=== PATIENT | male | born 1955 | race Caucasian/White ===

== ENCOUNTER 2024-06-04 20:48 | Observation (INO) | payer MEDICARE, SELFPAY ==
[2024-06-04] VITALS (8 sets, daily range): BP systolic 126–171; BP diastolic 80–100
--- NOTE | 2024-06-04 15:50 | ED.GENMED ---
ED Provider Triage
<Isis Lang PA-C - Last Filed: 06/04/24 15:57>
-
Patient seen by provider in Triage?: Seen in Triage
Attestation: A medical screening examination has been initiated by a qualified medical provider. Based on the assessment performed at this time, it has been determined that an emergent medical condition may exist and the patient has been informed
that further medical evaluation and possible additional diagnostic testing may be needed.
HPI: 69yoM here with double vision and dizziness x 1 hour. Also c/o nausea. Visual symptoms only present when looking to the left. Denies vertiginous symptoms. Describes dizziness as lightheadedness.
GENERAL: Alert , in no apparent distress
EYE: No visual abnormalities.
NECK: Trachea midline
ENT: No visible abnormalities.
LUNGS: No acute respiratory distress
NEUROLOGICAL: Alert and oriented
SKIN: Skin intact. No visible changes.
MUSCULOSKELETAL: Moving extremities normally
PSYCH: Normal and appropriate interaction.
This is a medical evaluation conducted in person to initiate diagnostic evaluation and provide initial therapeutics. Please see further documentation by the treating clinician.
Cardiac labs, EKG, and CT head ordered.
History of Present Illness
<Isis Lang PA-C - Last Filed: 06/04/24 15:57>
General
Chief Complaint: Dizziness
Time Seen by Provider: 06/04/24 16:40
<Sharee Carrasquillo MD, Resident - Last Filed: 06/04/24 21:27>
History of Present Illness
History of Present Illness:
69-year-old male with pmhx of Esqueda's palsy and amaurosis fugax presenting to the ED with nausea, left sided double vision and dizziness. Patient notes symptoms started around 1415 today and lasted about one hour. Denies slurred speech, weakness,
tingling, sensory loss, headache, LOC, trauma to head. Patient has a remote history of left sided amaurosis fugax in 2013 with unremarkable workup. 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
patient is currently asymptomatic.
Past History
<Isis Lnag PA-C - Last Filed: 06/04/24 15:57>
Past History
ED Past Medical History: Other (Esqueda's palsy) and Other (hepatitis c )
ED Past Surgical History: None
Social History
Tobacco: Non-smoker
Alcohol: None
Drug: None
Personal:
Living: with family
Employment: Employed
Review of Systems
<Sharee Carrasquillo MD, Resident - Last Filed: 06/04/24 21:27>
Review of Systems
Constitutional: Reports no symptoms
EENT: Reports no symptoms
Respiratory: Reports no symptoms
Cardiac: Reports no symptoms
ABD/GI: Reports nausea
: Reports no symptoms
Musculoskeletal: Reports no symptoms
Skin: Reports no symptoms
Neurological: Reports dizzy and other (double vision)
Hematologic/Lymphatic: Reports no symptoms
Psychiatric: Reports no symptoms
Phy Exam
<Sharee Carrasquillo MD, Resident - Last Filed: 06/04/24 21:27>
Physical Exam
Physical Exam:
GENERAL: Alert, awake, oriented. in no apparent distress
EYE: pupils equal and reactive. Extraocular muscles intact. Finger to nose negative. No visual field defects/diplopia. Mild right ptosis.
NECK: Supple, no significant adenopathy. No carotid bruit.
ENT: o/p clr, mmm. Mild nasolabial fold droop.
CARDIAC: Regular rate and rhythm.
LUNGS: Clear breath sounds bilaterally, no acute respiratory distress, no wheezes/rales/rhonchi
ABDOMEN: Soft, without focal tenderness, no r/g, no cvat
NEUROLOGICAL: Alert and oriented, no focal neuro deficits. Heel to lewis negative.
SKIN: Warm and dry, skin intact.
MUSCULOSKELETAL: No edema, well perfused. Bilateral upper and lower extremity strength: 5/5.
PSYCH: Normal and appropriate interaction.
Course
<Isis Lang PA-C - Last Filed: 06/04/24 15:57>
Orders/Labs/Results
Orders:
Orders
06/04/24 15:56
Electrocardiogram (*1) Urgent
Reason for Study: Vertigo / Dizzy
EKG- Treatment ONCE
06/04/24 16:01
CT Head W/o Iv Contrast Urgent
Comment:
Reason For Exam: dizziness, diplopia
06/04/24 16:06
Complete Blood Count/With Diff Urgent
Comprehensive Metabolic Panel Urgent
Troponin I Urgent
06/04/24 20:30
Admit/Transfer Patient As Directed
Co-Sign Provider:
Level of Care: Observation services
Assign to:: Telemetry
Physician / Group: Gabe
Diagnosis: visual disturbance
Reason for Telemetry: CVA/TIA
Date to Stop Telemetry: 06/07/24
Time to Stop Telemetry: 11:00
Code Status As Directed
Resuscitation Status: Full Code
PRN Pain Medication Management As Directed
May give lesser potent ordered pain med per pt: Yes
preference::
Protocol:: Medication orders for pain may be administered in a
manner that supports deferring to patient preference
when the pt is:
- Requesting an ordered lesser potent pain medication.
Least to most potent pain medications are defined
as: acetaminophen < NSAID < tramadol < opioids
(morphine, oxycodone, hydromorphone).
- Requesting a lesser dose of the same medication IF
ORDERED.
- Requesting a less intrusive route of administration
if both routes are prescribed by the provider (PO <
IV).
06/07/24 11:00
DC Protocol for Telemetry ONCE
Abnormal Lab Results
06/04/24
16:06
Glucose 127 H mg/dl
(70-99)
Albumin 5.1 H g/dl
(3.5-5.0)
06/04/24 16:06
06/04/24 16:06
Vital Signs
Initial and Last Documented VS:
Initial Vital Signs
Temp Pulse Resp BP Pulse Ox
98.1 F 65 20 171/100 99
06/04/24 15:49 06/04/24 15:49 06/04/24 15:49 06/04/24 15:49 06/04/24 15:49
Last Documented Vital Signs
Temp Pulse Resp BP Pulse Ox
98.1 F 68 14 149/83 98
06/04/24 15:49 06/04/24 19:30 06/04/24 19:30 06/04/24 19:00 06/04/24 19:30
<Sharee Carrasquillo MD, Resident - Last Filed: 06/04/24 21:27>
Orders/Labs/Results
Orders:
Orders
06/04/24 15:56
Electrocardiogram (*1) Urgent
Reason for Study: Vertigo / Dizzy
EKG- Treatment ONCE
06/04/24 16:01
CT Head W/o Iv Contrast Urgent
Comment:
Reason For Exam: dizziness, diplopia
06/04/24 16:06
Complete Blood Count/With Diff Urgent
Comprehensive Metabolic Panel Urgent
Troponin I Urgent
06/04/24 20:30
Admit/Transfer Patient As Directed
Co-Sign Provider:
Level of Care: Observation services
Assign to:: Telemetry
Physician / Group: Gabe
Diagnosis: visual disturbance
Reason for Telemetry: CVA/TIA
Date to Stop Telemetry: 06/07/24
Time to Stop Telemetry: 11:00
Code Status As Directed
Resuscitation Status: Full Code
PRN Pain Medication Management As Directed
May give lesser potent ordered pain med per pt: Yes
preference::
Protocol:: Medication orders for pain may be administered in a
manner that supports deferring to patient preference
when the pt is:
- Requesting an ordered lesser potent pain medication.
Least to most potent pain medications are defined
as: acetaminophen < NSAID < tramadol < opioids
(morphine, oxycodone, hydromorphone).
- Requesting a lesser dose of the same medication IF
ORDERED.
- Requesting a less intrusive route of administration
if both routes are prescribed by the provider (PO <
IV).
06/07/24 11:00
DC Protocol for Telemetry ONCE
Abnormal Lab Results
06/04/24
16:06
Glucose 127 H mg/dl
(70-99)
Albumin 5.1 H g/dl
(3.5-5.0)
06/04/24 16:06
06/04/24 16:06
Vital Signs
Initial and Last Documented VS:
Initial Vital Signs
Temp Pulse Resp BP Pulse Ox
98.1 F 65 20 171/100 99
06/04/24 15:49 06/04/24 15:49 06/04/24 15:49 06/04/24 15:49 06/04/24 15:49
Last Documented Vital Signs
Temp Pulse Resp BP Pulse Ox
98.1 F 68 14 149/83 98
06/04/24 15:49 06/04/24 19:30 06/04/24 19:30 06/04/24 19:00 06/04/24 19:30
<Jose Alfaro, DO - Last Filed: 06/04/24 19:40>
Orders/Labs/Results
Orders:
Orders
06/04/24 15:56
Electrocardiogram (*1) Urgent
Reason for Study: Vertigo / Dizzy
EKG- Treatment ONCE
06/04/24 16:01
CT Head W/o Iv Contrast Urgent
Comment:
Reason For Exam: dizziness, diplopia
06/04/24 16:06
Complete Blood Count/With Diff Urgent
Comprehensive Metabolic Panel Urgent
Troponin I Urgent
06/04/24 20:30
Admit/Transfer Patient As Directed
Co-Sign Provider:
Level of Care: Observation services
Assign to:: Telemetry
Physician / Group: Gabe
Diagnosis: visual disturbance
Reason for Telemetry: CVA/TIA
Date to Stop Telemetry: 06/07/24
Time to Stop Telemetry: 11:00
Code Status As Directed
Resuscitation Status: Full Code
PRN Pain Medication Management As Directed
May give lesser potent ordered pain med per pt: Yes
preference::
Protocol:: Medication orders for pain may be administered in a
manner that supports deferring to patient preference
when the pt is:
- Requesting an ordered lesser potent pain medication.
Least to most potent pain medications are defined
as: acetaminophen < NSAID < tramadol < opioids
(morphine, oxycodone, hydromorphone).
- Requesting a lesser dose of the same medication IF
ORDERED.
- Requesting a less intrusive route of administration
if both routes are prescribed by the provider (PO <
IV).
06/07/24 11:00
DC Protocol for Telemetry ONCE
Abnormal Lab Results
06/04/24
16:06
Glucose 127 H mg/dl
(70-99)
Albumin 5.1 H g/dl
(3.5-5.0)
06/04/24 16:06
06/04/24 16:06
Vital Signs
Initial and Last Documented VS:
Initial Vital Signs
Temp Pulse Resp BP Pulse Ox
98.1 F 65 20 171/100 99
06/04/24 15:49 06/04/24 15:49 06/04/24 15:49 06/04/24 15:49 06/04/24 15:49
Last Documented Vital Signs
Temp Pulse Resp BP Pulse Ox
98.1 F 68 14 149/83 98
06/04/24 15:49 06/04/24 19:30 06/04/24 19:30 06/04/24 19:00 06/04/24 19:30
<Sharee Carrasquillo MD, Resident - Last Filed: 06/04/24 21:27>
MDM/Problems Addressed
Differential Diagnosis Includes:
TIA/Stroke
Amaurosis fugax
Occlusion of retinal artery
<Sharee Carrasquillo MD, Resident - Last Filed: 06/04/24 21:27>
*Critical Care Note
Total Time (30-74mins, 75-104mins- exclusive of procedures): Not Applicable
ED Attending Note
<Isis Lang PA-C - Last Filed: 06/04/24 15:57>
-
Portions of this chart may have been created with voice recognition software.� Occasional wrong word or��sound alike� substitutions may have occurred due to the inherent limitations of voice recognition software.
<Jose Alfaro DO - Last Filed: 06/04/24 19:40>
ED Attending Note
Patient seen and examined by attending physician: Yes
I performed a history and physical exam of patient and discussed management with resident, I reviewed resident's note and agree with documented findings and plan of care.: Yes
ED Attending Note:
I evaluated patient at bedside. There are no field cuts. EOMI. Symptoms lasted for about an hour and have now resolved. He states he had amaurosis involving the left eye 10 years ago with a reported unremarkable workup. Records from 2013
suggest a small saccular aneurysm at the left ICA. Current NIHSS equals 0 however neurology wanted the patient to be kept in the hospital for further management and evaluation. I personally reviewed CT imaging of the head and see no acute
abnormality.
Discharge Plan
Departure
Patient Disposition: Admit
Date of Disposition: 06/04/24
Time of Disposition: 19:46
Admit to doctor: Gabe
Presentation/result/management discussed w/ accepting MD/DO: Hospitalist
Condition: Good
Discharge Problem:
Double vision, left eye, Nausea, Dizziness
Interventions
Interventions:
*Risk Screen - Suicide Last Done: 06/04/24 21:24
*General Assessment Last Done: 06/04/24 15:49
*Neglect/Abuse Screening Last Done: 06/04/24 21:24
*ED COVID-19 Vaccine History Last Done: 06/04/24 16:45
ED- Neurological Assessment Last Done: 06/04/24 21:24
[2024-06-04 16:13] LABS: % Basophils 0.3 % (0-2); % Immature Granulocytes 0.2 % (0-0.5); % Monocytes 6.9 % (1.7-9.3); % Neutrophils 66.6 % (42.2-75.2); Absolute Eosinophils 0.1 10^3/uL (0-0.7); Absolute Lymphocytes 1.6 10^3/uL (1.2-3.4); Absolute Monocytes 0.4 10^3/uL (0.1-0.6); Absolute Neutrophils 4.2 10^3/uL (1.4-6.5); Hemoglobin 15.3 g/dL (13.0-18.0); Mean Corpuscular Hgb 29.8 pg (27.0-31.0); Mean Corpuscular Volume 87.5 fL (80.0-94.0); Mean Platelet Volume 9.3 fL (7.4-10.4); Nucleated Red Blood Cells % 0 % (-); Platelet Count 156 10^3/uL (130-400); Red Blood Cell Count 5.14 10^6/uL (4.70-6.10); Red Cell Dist. Width 12.4 % (11.5-14.5); White Blood Cell Count 6.2 10^3/uL (4.8-10.8)
[2024-06-04 16:31] LABS: ALT (SGPT) 41 U/L (0-50); AST (SGOT) 42 U/L (17-59); Albumin 5.1 g/dl (3.5-5.0); Alkaline Phosphatase 56 U/L (38-126); Blood Urea Nitrogen 19 mg/dl (9-20); Calcium 9.5 mg/dl (8.4-10.2); Carbon Dioxide 28 mmol/L (22-30); Chloride 100 mmol/L (98-107); Glucose 127 mg/dl (70-99); Potassium 4.2 mmol/L (3.5-5.1); Sodium 140 mmol/L (135-145); Total Bilirubin 0.7 mg/dl (0.2-1.3); eGFR > 60.00
[2024-06-04 16:36] LABS: Troponin I < 0.012 ng/ml
--- NOTE | 2024-06-04 20:46 | HPS.HSE ---
Addendum entered and electronically signed by David Bernal DO 06/04/24 21:42:
Patient seen and examined independently. Agree with findings and plan as set forth by Alexandria Darling PA-C.
Patient is a 69y M with PMH significant for treated Hepatitis C and prior Esqueda's Palsy who presents to ED complaining of visual disturbance. Patient states that he had double vision this afternoon when looking towards his L. No such diplopia
with forward-facing or rightward gaze. He presented to the ED for further evaluation and treatment. His symptoms resolved shortly after arrival - lasting about 1 hour in total. He denies any associated symptoms including headache, numbness,
tingling, weakness, etc.
Patient has prior history of visual disturbances in the past including amaurosis fugax x 2 prior episodes - most recently in 2013. Prior events were attributed to ocular migraine - by patient report.
In the ED, patient is resting comfortably at present with no complaints.
Ass:
Diplopia / Transient Vision Change
History of Amaurosis Fugax
History of Esqueda's Palsy
Known L ICA Aneurysm (3mm)
Benign Hypertension
Hep C - s/p treatment
Plan:
Observe overnight for further evaluation and treatment.
Symptom-free at present.
Follow for new / recurrent symptoms overnight.
MRI in the AM.
Neuro evaluation for additional recommendations.
? recurrent / atypical ocular migraine, CN palsy, etc ?
Original Note:
Family Physician
-
Family Physician: NOT KNOW UNKNOWN - PT DOES
Chief Complaint
-
Double Vision
History of Present Illness
Patient is a 69 y/o male past medical history of bells' palsy, amaurosis fugax, ocular migraine and hepatitis c who presents with double vision. Patient reports around 2:15PM this afternoon he noticed when he looked the left had double vision. He
reports double would only occur with gaze to the left, and was not present with he looked straight ahead or to the right. Symptoms lasted over an hours which prompted him to come to the emergency department, but upon my evaluaton symptoms have
resolved. He denies difficulty with speech or cognition. He denies focal numbness, tingling or weakness.
Medical History
Past Medical History
Past Medical History: Reports Other
Additional Past Medical History:
Right Esqueda's Palsy
Left Amaurosis Fugax
Ocular Migraine
Hepatitis C - Treated
Past Surgical History: Reports Other
Additional Past Surgical History:
Achilles tendon and ACL repair
Hernia Repair
Social History
Tobacco: Former Smoker (Quit in 2009)
Alcohol: Other (Very rare alcohol consumption)
Family History
Family History: Not pertinent
Allergies / Home Medications
Allergies reflects when Allergies were last updated in [employer].
Home Medications with original date entered in [employer]
Allergy/Medication List:
Allergies
Allergy/AdvReac Type Severity Reaction Status Date / Time
No Known Allergies Allergy Verified 06/04/24 15:49
Home Medications
aspirin 81 mg chewable tablet 81 mg PO DAILY ##0 02/15/14
amlodipine 10 mg tablet 10 mg PO DAILY 03/21/20
magnesium oxide 400 mg PO DAILY 06/04/24
pyridoxine (vitamin B6) 100 mg tablet 100 mg PO DAILY 06/04/24
Review of Systems
-
A 12 point ROS was completed and negative except as noted: Yes
Constitutional: Denies Fever or Chills
Respiratory: Denies Cough or Trouble Breathing
Cardiac: Denies Chest Pain or Palpitations
Abdomen/GI: Denies Abdominal Pain, Nausea, Vomiting or Diarrhea
Neurological: Reports See HPI
Physical Exam
Vital Signs
Vital Signs
Temp Pulse Resp BP Pulse Ox
98.1 F 68 14 149/83 98
06/04/24 15:49 06/04/24 19:30 06/04/24 19:30 06/04/24 19:00 06/04/24 19:30
Physical Exam
General: Comfortable and Conversant
HEENT: Anicteric, Moist mucous membranes, PERRLA and Other (EOMI - No double vision during my evaluation)
Respiratory: Clear and Non Labored Respirations
Cardiac: S1/S2 and Regular Rhythm
GI: Soft and Non Tender
Rectal: Deferred by Provider
Musculoskeletal: No Clubbing, No Cyanosis and No Edema
Skin: Warm and Dry
Neuro: Awake, Alert, Oriented and Nonfocal/grossly intact
Psych: Calm
Laboratory Results
-
06/04/24 16:06
06/04/24 16:06
Laboratory Results
Total Bilirubin 0.7 mg/dl (0.2-1.3) 06/04/24 16:06
AST 42 U/L (17-59) 06/04/24 16:06
ALT 41 U/L (0-50) 06/04/24 16:06
Alkaline Phosphatase 56 U/L (38-126) 06/04/24 16:06
Troponin I < 0.012 ng/ml 06/04/24 16:06
Data Reviewed
-
Lab Data: Labs Reviewed by me
Impression/Plan
-
Transient Double Vision with lateral gaze to the left
-Consult Neurology
-Check Brain MRI
-Check Head MRA to follow-up on previously seen left internal carotid artery aneurysm
-Continue aspirin
Essential Hypertension
-Continue amlodipine with hold parameters
DVT proph: SCDs
Code Status: Full Code
--- NOTE | 2024-06-05 00:57 | PTCARENOTE ---
P received on unit at approximately 2039. Pt able to step up on standing scale and walk from stretcher to bed. Pt placed on tele showing NSR with R BBB. VSS. Pt oriented to room and able to make needs known.
[2024-06-05 03:00] VITALS: BP 131/76
[2024-06-05 07:00] VITALS: BP 148/88
[2024-06-05] MEDS: NORVASC 10 MG PO (08:21)
[2024-06-05] MEDS: LOW STRENGTH ASPIRIN 81 MG PO (08:21)
--- NOTE | 2024-06-05 08:22 | CON.NEURO ---
Consultation
Order
Date of Consultation: 06/05/24
Requesting Provider: Alexandria Darling PA-C
Reason for Consult: Double vision
Neurology Consultation Note.
HPI: This is a 69-year-old RH man who presented to [facility] on 06/04/2024 with transient visual symptoms. According to the patient he developed painless binocular horizontal diplopia worse with looking to the left lasting for an
hour. No associated eye/head trauma, vertigo, headache, speech, sensory, motor or balance abnormalities.
Mr. Ospina has a history of right Esqueda's palsy(1997) as well as progressive right ptosis that he underwent right blepharoplasty in 2005.
ER VS: 171/100, 65, afebrile
EKG:RBBB, QTc Int : 480 ms
PDMP: none
Brain MRI no evidence of acute infarcts
MRA head�stable known left cavernous ICA aneurysm, no dissection or thrombosis.
PMH: Right Esqueda's palsy(1997), history of right ptosis, bilateral SNHI, chronic hepatitis C, amaurosis fugax, HTN. migraine aura, BPH
PSH: Right blepharoplasty(2005), left inguinal hernia repair, right meniscal repair, left ACL repair, right Achilles repair,
SH: , retired from pharmaceutical industry, former smoker
FH: Not contributory to current presentation.
All:NKDA
ROS:Constitutional: Negative. Negative for chills, fever and unexpected weight change.
HENT: Positive for chronic hearing impairment, bilateral tinnitus
Eyes: Negative. Negative for photophobia, pain and visual disturbance.
Respiratory: Negative for cough, choking and shortness of breath.
Cardiovascular: Negative for chest pain, palpitations and leg swelling.
Gastrointestinal: Negative for abdominal pain and vomiting.
Endocrine: Negative. Negative for cold intolerance.
Genitourinary: Negative for dysuria, flank pain and urgency.
Musculoskeletal: Negative for back pain, gait problem, neck pain and neck stiffness.
Skin: Negative for rash.
Allergic/Immunologic: Negative. Negative for immunocompromised state.
Neurological: Positive for transient diplopia
Psychiatric/Behavioral: Negative for behavioral problems, confusion and hallucinations.
General: Well developed. In no acute distress.
Cardio: Regular rate and rhythm without murmur. Extremities are without cyanosis or edema.
Neuro:
Mental Status: Alert, oriented to person, place, and date. Normal attention and recall. Good fund of knowledge. Follows complex requests across the midline. Comprehension, naming, and repetition intact. Immediate and delayed recall 3/3.
Cranial Nerves: . Pupils are equally round and reactive to light. EOMs full. Visual walker full to confrontation. R ptosis. No nystagmus. V1-V3 intact to light touch and pinprick bilaterally, symmetric. Face symmetric. Poor hearing AU. The
palate elevated well. SCMs and traps 5/5. Tongue midline. No dysarthria.
Motor: Normal bulk and tone. No pronator or arm drift. Strength 5/5 throughout. No clonus.
Reflexes: 2+ throughout the upper extremities and knees. Plantar responses flexor bilaterally.
Sensory: Normal vibration at the toes
Coordination: No dysmetria or tremor.
Gait: Normal stance, stride.
Assessment and Plan:
I. Transient binocular painless diplopia.
II. Chronic R ptosis
III. History of R CN LMN palsy
IV. Left cavernous ICA aneurysm. Aneurysms in the cavernous sinus cannot compress the ipsilateral oculomotor and abducens nerves however over would not expect transient nature of the symptoms especially with stable aneurysm size
-Strict blood pressure control
-Please check Mg panel and TFTs
-Mestinon 60 mg 3 times daily. If diplopia returns
-Outpatient neurology follow-up
-Outpatient neurosurgery follow-up
-Outpatient neuro ophthalmology evaluation.
I personally reviewed all radiology and labs along with past medical records pertinent to current medical problems. Total time spent in patient care is 60 minutes.
Thank you for allowing us to participate in the care of this patient. We will continue to follow. Please do not hesitate to contact us with any questions or concerns.
Subjective/Objective
Subjective Data
Date of Service: June 05, 2024
Objective Data
Vital Signs
Temp Pulse Resp BP Pulse Ox
36.7 C 63 18 148/88 97
06/05/24 07:00 06/05/24 07:00 06/05/24 07:00 06/05/24 07:00 06/05/24 07:00
Lab Results
06/04/24 16:06
Sodium 140 mmol/L (135-145) 06/04/24 16:06
Potassium 4.2 mmol/L (3.5-5.1) 06/04/24 16:06
BUN 19 mg/dl (9-20) 06/04/24 16:06
Glucose 127 mg/dl (70-99) H 06/04/24 16:06
Calcium 9.5 mg/dl (8.4-10.2) 06/04/24 16:06
Patient Allergies
No Known Allergies Allergy (Verified 06/04/24 15:49)
Medications
-
Active Medications
Generic Name Dose Route Start Last Admin
Trade Name Freq PRN Reason Stop Dose Admin
Acetaminophen 650 mg 06/04/24 21:49
Acetaminophen 325 Mg Tablet PO 07/02/24 21:48
Q4HPRN PRN
mild pain/ fever>100.5F
Amlodipine Besylate 10 mg 06/05/24 08:00
Amlodipine 10 Mg Tablet PO 07/03/24 07:59
DAILY ROSA
Aspirin 81 mg 06/05/24 08:00
Aspirin 81 Mg Chewable Tablet PO 07/03/24 07:59
DAILY ROSA
Home Medications
�Medication �Instructions �Recorded
aspirin 81 mg chewable tablet 81 mg PO DAILY ##0 02/15/14
amlodipine 10 mg tablet 10 mg PO DAILY 03/21/20
magnesium oxide 400 mg PO DAILY 06/04/24
pyridoxine (vitamin B6) 100 mg 100 mg PO DAILY 06/04/24
tablet
Vital Signs and Labs
-
Vital Signs and Labs:
Vital Signs
Temp Pulse Resp BP Pulse Ox
36.7 C 63 18 148/88 97
06/05/24 07:00 06/05/24 07:00 06/05/24 07:00 06/05/24 07:00 06/05/24 07:00
Lab Results
06/04/24 16:06
Sodium 140 mmol/L (135-145) 06/04/24 16:06
Potassium 4.2 mmol/L (3.5-5.1) 06/04/24 16:06
BUN 19 mg/dl (9-20) 06/04/24 16:06
Glucose 127 mg/dl (70-99) H 06/04/24 16:06
Calcium 9.5 mg/dl (8.4-10.2) 06/04/24 16:06
Medications
-
Medications:
Generic Name Dose Route Start Last Admin
Trade Name Freq PRN Reason Stop Dose Admin
Acetaminophen 650 mg 06/04/24 21:49
Acetaminophen 325 Mg Tablet PO 07/02/24 21:48
Q4HPRN PRN
mild pain/ fever>100.5F
Amlodipine Besylate 10 mg 06/05/24 08:00
Amlodipine 10 Mg Tablet PO 07/03/24 07:59
DAILY ROSA
Aspirin 81 mg 06/05/24 08:00
Aspirin 81 Mg Chewable Tablet PO 07/03/24 07:59
DAILY ROSA
Home Medications
-
Home Medications
aspirin 81 mg chewable tablet 81 mg PO DAILY ##0 02/15/14
amlodipine 10 mg tablet 10 mg PO DAILY 03/21/20
magnesium oxide 400 mg PO DAILY 06/04/24
pyridoxine (vitamin B6) 100 mg tablet 100 mg PO DAILY 06/04/24
[2024-06-05 08:26] LABS: Blood Urea Nitrogen 16 mg/dl (9-20); Calcium 9.1 mg/dl (8.4-10.2); Carbon Dioxide 29 mmol/L (22-30); Chloride 102 mmol/L (98-107); Glucose 102 mg/dl (70-99); Potassium 4.1 mmol/L (3.5-5.1); Sodium 140 mmol/L (135-145); eGFR > 60.00
[2024-06-05 11:00] VITALS: BP 145/80
--- NOTE | 2024-06-05 12:08 | W.PN.HOSP.TC ---
Today's Communication/Plan
-
Draw myasthenia gravis antibody panel
Outpatient follow-up with neurology and ophthalmology
Discharge
Assessment / Plan
Assessment / Plan
#Transient diplopia with lateral gaze to the left
#Left ICA aneurysm
#History of ocular migraine
-Differential diagnoses include ocular migraine, CVA/TIA, ocular nerve palsy, myasthenia gravis
-Presented with diplopia upon leftward gaze, resolved shortly after arrival
-Has history of similar transient ocular issues, previously with visual deficits
-Workup for CVA in the past has been negative, has diagnosis of ocular migraines
-NIHSS 0 at time of my evaluation, patient was walking around the room without issue
-MRI/MRA show no signs of acute infarct, no significant change to known left ICA aneurysm
-Neurology consulted, recommended checking myasthenia gravis panel though no contraindication to DC now
-Suspect this was recurrence of ocular migraine
-Follow-up with OP neurology for MG panel results
#Essential Hypertension
-Continue amlodipine with hold parameters
-Should have follow-up with PCP, consideration escalate antihypertensive regimen with known ICA aneurysm
-Blood pressure slightly elevated here, possibly worsened today in the hospital anxiety
-Will provide blood pressure cuff, encouraged home BP monitoring in preparation of office visit
#H/O right sided Esqueda's palsy
-Unclear etiology, chronic droop to the right eye
-No new acute focal deficits since resolution of his ocular symptom
DVT proph: SCDs
Diet: Regular
Code Status: Full Code
Anticipated Discharge: Today
Subjective/Interval History
-
Date of Service: June 05, 2024
Seen and examined at the bedside. No acute events reported overnight. AFVSS
His ocular deficits have resolved. At time of my evaluation he was pacing around his room
Denies any acute complaints. NIHSS is 0
Objective Data
-
Labs:
Laboratory Results
06/05/24
06:45
Sodium 140
Potassium 4.1
Chloride 102
Carbon Dioxide 29
BUN 16
Creatinine 1.0
Glucose 102 H
Calcium 9.1
Vital Signs:
Vital Signs
Temp Pulse Resp BP Pulse Ox
97.5 F 60 18 145/80 97
06/05/24 11:00 06/05/24 11:00 06/05/24 11:00 06/05/24 11:00 06/05/24 11:00
I&O
06/04/24 06/05/24 06/06/24
06:59 06:59 06:59
Intake Total 240 / 240
Balance 240 / 240
Review of Systems
-
History Source: Patient
All other systems: Reviewed and negative
Physical Exam
-
General: Well Developed, Well Nourished, No Apparent Distress and Comfortable
HEENT: Normocephalic, Atraumatic, Moist Mucous Membranes and Anicteric
Respiratory: Clear to Auscultation and Non Labored Respirations; Negative Wheezes, Rales or Rhonchi
Cardiac: Regular Rhythm and S1/S2; Negative Murmur, Rub or Gallop
GI: Soft, Nontender, Nondistended and Normal Bowel Sounds
Musculoskeletal: No Clubbing, No Cyanosis, No Edema and Normal Gait & Station
Skin: Warm, Dry and Normal Turgor; Negative Rash
Neuro: AO x 3, Nonfocal/Grossly Intact, Central Nerve's Intact, Facial Droop (Right-sided from chronic Esqueda's Palsy) and Other (5/5 MMS, no sensory deficits, PERRL, EOMI)
Psych: Calm
Data Reviewed
-
MRI: Report Reviewed by me, Discussed with Physician (Neurologist) and Discussed with Patient
Labs: Labs Reviewed by me, Discussed with Physician (Neurologist, MG panel) and Discussed with Patient
--- NOTE | 2024-06-05 12:39 | CM ---
manager welding reviewed patient's chart and met with patient and patient was admitted under obs, [facility] letter provided to patient patient lives with his spouse in a 2 story home, patient is independent with adl's and ambulation, no dme, patient is for
discharge to home today no needs.
Plan; Home no needs
PCP: Dr. Abdullahi
Pharmacy [facility].
[2024-06-05 13:15] LABS: C-Reactive Protein < 5.00 mg/L (0.0-10.00)
[2024-06-05 13:40] LABS: Erythrocyte Sed Rate 8 mm/hour (0-20)
[2024-06-05 13:46] LABS: TSH Reflex To Free T4 1.83 uIU/ml (0.47-4.68)
--- NOTE | 2024-06-05 15:53 | W.DCSUMMARY ---
Discharge Summary
Discharge Data
Date of Admission: 06/04/24
Date of Discharge: 06/05/24
-
Pending Results: Yes
Additional Pending Results:
Myasthenia gravis antibody panel
Hospital Course
69-year-old male with occipital migraines, hypertension, left ICA aneurysm, HCV s/p antiviral therapy, H/O left amaurosis fugax, H/O right-sided Esqueda's palsy with chronic right eye droop that presented to the hospital with diplopia noted upon
leftward gaze. Has had previous transient ocular manifestations that included visual field loss, negative workup for CVA following those symptoms. Upon arrival had CT head did not show any signs of intracranial hemorrhage. MRI and MRA brain and
neck did not show any evidence of acute CVA, nor any enlargement to his known left ICA aneurysm. Was evaluated by neurology, recommended obtaining a lab draw for myasthenia gravis antibodies. Following negative MRI was determined stable for
discharge. Referrals provided for neurologist and supervisor record press, will review myasthenia gravis antibody panel in office with neurologist. Advised him to follow-up with his family doctor within 7 to 10 days of discharge. Advised him to come back
to the emergency department if he developed recurrence of symptoms or new neurological symptoms such as paresthesias, weakness, speech difficulty
Discharge Plan
-
Patient Disposition: Home (Routine Discharge)
Discharge Diagnosis/Procedures: Diplopia
Likely ocular migraine
Negative stroke workup
Condition: Good
Diet: No restrictions
Activity: As tolerated
Driving Restrictions: As prior to admission
Bathing Restrictions: None
Activity Restrictions/Additional Instructions:
After discharge from the hospital schedule follow-up appointment with family doctor, should be seen in office within 1 to 2 weeks
Referral provided for ophthalmology (eye doctor), call office to schedule
Referral to neurologist provided, call office to schedule
Instructions: [facility]
Referrals:
Eros Tarango MD, Resident [Family Practice Resident Year2] - in two weeks (If family doctor needed)
Hernandez,Idris J. Jr., DO [Non-Admitting Privileges] - in two weeks
Fredrick Rojas MD [Active] -
UNKNOWN - PT DOES,NOT KNOW [Family Provider] -
Additional Discharge Medication Instructions: No medication changes
Use blood pressure cuff to monitor your home blood pressure twice daily, give yourself 15 minutes of rest before taking blood pressure. Write down the numbers and a booklet and take them to your family doctor's appointment
Prescriptions:
New
(DME) blood pressure monitor [Blood Pressure Kit] Kit
See Rx Instructions .Route Qty: 1 0RF
Rx Instructions:
As directed
Continued
aspirin 81 MG tablet,chewable
81 mg PO DAILY Qty: 0 0RF
amlodipine 10 MG tablet
10 mg PO DAILY
pyridoxine (vitamin B6) 100 mg Tablet
100 mg PO DAILY
magnesium oxide 400 mg magnesium Tablet
400 mg PO DAILY
Discharge Orders:
Discharge Patient (As Directed); Ordered 06/05/24
Ordered By: Khanh Haque
Discharge Date and Time
Discharge Date/Time: 06/05/24 15:30
Print Language: GEORGIAN
[2024-06-07 18:55] LABS: Angiotensin-1-converting Enzym 21 U/L (16-85)
== END 2024-06-05 15:30 | disposition home or self-care (01) ==
LOC: 4 WEST ACU 20:48
PROVIDERS: Physician Assistant; Physician Assistant Medical; ADMITTING PHYSICIAN Hospitalist; ATTENDING PHYSICIAN Internal Medicine; CONSULT PHYSICIAN Psychiatry & Neurology Neurology; EMERGENCY PHYSICIAN Emergency Medicine
DX: H53.2 Diplopia (principal); R42 Dizziness and giddiness; R11.0 Nausea; H02.401 Unspecified ptosis of right eyelid; B19.20 Unspecified viral hepatitis C without hepatic coma; I67.1 Cerebral aneurysm, nonruptured; H53.9 Unspecified visual disturbance; I10 Essential (primary) hypertension; I45.10 Unspecified right bundle-branch block; G31.9 Degenerative disease of nervous system, unspecified; I67.82 Cerebral ischemia; Z87.891 Personal history of nicotine dependence; Z79.82 Long term (current) use of aspirin
CPT/HCPCS: 70450; 70544; 70551; 80048; 80053; 82164; 84443; 84484; 85025; 85652; 86041; 86140; 93005; 99285; G0378